=== PATIENT | male | born 1980 | race Caucasian/White ===

== ENCOUNTER 2016-03-16 18:07 | Emergency (ER) | payer OTHER ==
[2016-03-16 19:05] VITALS: BP 133/103; PULSE 115; TEMP 98.2; BMI 32.0
[2016-03-16] MEDS ORDERED: OXYCODONE/APAP 5/325MG COMBO TABLET PO ONE (19:34)
[2016-03-16] MEDS ORDERED: OXYCODONE/APAP 5/325MG COMBO TABLET ONE (19:44)
--- NOTE | 2016-03-16 19:58 | PDOC ---
[id number] INJURY Time Seen by Provider: 03/16/16 19:14 - History of Present Illness Initial Comments: 03/16/16 19:49 CHIEF COMPLAINT: Injury to left foot HISTORY OF PRESENT ILLNESS: 35-year-old male with no significant past medical history presents to fast-track status post injury to left foot. Patient states that he was at his [employer] joint to grab a cardboard box when the car per box got stuck on a bolt and pulled down a concrete object that fell onto his foot. Patient is unable to bear weight on the foot, and reports extreme swelling and that he had a "cut" to the foot. No recent travel or sick contacts. PAST MEDICAL HISTORY: Denies past medical history FAMILY HISTORY: Denies SOCIAL HISTORY: Current smoker, 1/2 pack daily. Denies alcohol, illicit drug use. SURGICAL HISTORY: Denies ALLERGIES: No known drug allergies REVIEW OF SYSTEMS General/Constitutional: Denies fever or chills. Denies weakness, weight change. HEENT: Denies change in vision. Denies ear pain or discharge. Denies sore throat. Cardiovascular: Denies chest pain or shortness of breath. Respiratory: Denies cough, wheezing, or hemoptysis. Gastrointestinal: Denies nausea, vomiting, diarrhea or constipation. Denies rectal bleeding. Genitourinary: Denies dysuria, frequency, or change in urination. Musculoskeletal: Injury to left foot with swelling and severe pain. Skin and breasts: Denies rash or easy bruising. PHYSICAL EXAM General Appearance: Well-appearing, appropriately dressed. No apparent distress , no intoxication. HEENT: EOMI, PERRLA, normal ENT inspection, normal voice, TMs normal, pharynx normal. No conjunctival pallor. No photophobia, scleral icterus. Neck: Supple. Trachea midline. No tenderness, rigidity, carotid bruit, stridor , lymphadenopathy, or thyromegaly. Respiratory/Chest: Lungs CTAB. Cardiovascular: RRR. S1, S2. Gastrointestinal/Abdominal: Normal bowel sounds. Abdomen soft, non-distended. No tenderness or rebound tenderness. No organomegaly, pulsatile mass, guarding , hernia, hepatomegaly, splenomegaly. Musculoskeletal/Extremities: Marked tenderness, swelling, and eccymhosis to entire left foot. 0.5 cm superficial laceration to dorsal aspect of 4th metatarsal. Minimal ROM to left foot secondary to pain. DP pulse not palpable secondary to swelling, pulse located via doppler. PT pulse 2+. Integumentary: Appropriate color, dry, warm. No cyanosis, erythema, jaundice or rash Neurologic: signal mechanic II-XII intact. Fully oriented, alert. Appropriate mood/affect. Motor strength 5/5. No appreciable EOM palsy, facial droop or sensory deficit. Past History - Past Medical History Allergies/Adverse Reactions: Allergies Allergy/AdvReac Type Severity Reaction Status Date / Time No Known Allergies Allergy Verified 03/16/16 18:48 Home Medications: Ambulatory Orders Ibuprofen 600 mg PO TID PRN #21 tablet 03/16/16 Oxycodone HCl/Acetaminophen [Percocet 10-325 mg Tablet] 1 - 2 tab PO Q6H PRN # 12 tablet MDD 8 03/16/16 Other medical history: denies - Psycho/Social/Smoking Cessation Hx Suicidal Ideation: No Smoking History: Current every day smoker Number of Cigarettes Smoked Daily: 10 Information on smoking cessation initiated: No Substance Use Type: None *Physical Exam - Vital Signs Last Vital Signs Temp Pulse Resp BP Pulse Ox 98.2 F 115 H 18 133/103 99 03/16/16 18:48 03/16/16 18:48 03/16/16 18:48 03/16/16 18:48 03/16/16 18:48 ED Treatment Course - RADIOLOGY Radiology Studies Ordered: Category Date Time Status ANKLE & FOOT-LEFT* [RAD] Stat Radiology 03/16/16 19:34 Ordered - Medications Given in the ED: ED Medications Discontinued Medications Generic Name Dose Route Start Last Admin Trade Name Freq PRN Reason Stop Dose Admin Oxycodone/Acetaminophen 2 combo 03/16/16 19:34 03/16/16 19:48 Percocet 5/325 - PO 03/16/16 19:35 2 combo ONCE ONE Administration Medical Decision Making - Medical Decision Making 35 yo M presents to ED with pain to left foot s/p injury. -L foot x-ray -Percocet L foot x-ray suggestive of fracture to second metatarsal. Discussed case with attending orthopedic MD Kaur, who advises pain control with close follow up in office tomorrow. Advised patient to take medication as prescribed and follow up with Dr. Kaur tomorrow. Patient verbalized understanding and agrees to plan. *DC/Admit/Observation/Transfer Diagnosis at time of Disposition: Fracture - Discharge Dispostion Disposition: HOME Condition at time of disposition: Stable Admit: No - Prescriptions Prescriptions: Ibuprofen 600 mg PO TID PRN #21 tablet PRN Reason: Pain Oxycodone HCl/Acetaminophen [Percocet 10-325 mg Tablet] 1 - 2 tab PO Q6H PRN # 12 tablet MDD 8 PRN Reason: Pain - Referrals Referrals: Carlos Kaur MD [Staff Physician] - - Patient Instructions Printed Discharge Instructions: DI for Foot Fracture, How To Perform RICE (Rest , Ice, Compress, Elevate) Additional Instructions: Take medications as prescribed. Follow with Dr. Kaur tomorrow. If you experience any loss of sensation to the toes, numbness or tingling to your legs , or any new or worsening symptoms, please return to the ER. - Post Discharge Activity Work/School Note: Back to Work
[2016-03-16] MEDS ORDERED: KETOROLAC TROMETHAMINE 60 MG/2 ML VIAL IM ONE (20:41)
[2016-03-16] MEDS ORDERED: KETOROLAC TROMETHAMINE 60 MG/2 ML VIAL ONE (21:13)
== END 2016-03-16 21:24 | disposition home or self-care (01) ==
LOC: JER 18:07
PROC: 3E0233Z Introduction of Anti-inflammatory into Muscle, Percutaneous Approach (ICD-10-PCS; principal; 2016-03-16)
DX: S92.321A Displaced fracture of second metatarsal bone, right foot, initial encounter for closed fracture (principal); W20.8XXA Other cause of strike by thrown, projected or falling object, initial encounter; Y93.89 Activity, other specified; F17.210 Nicotine dependence, cigarettes, uncomplicated
CPT/HCPCS: 73610-TC-LT; 73630-TC-LT; 99281-25